=== PATIENT | male | born 2000 | race Caucasian/White ===

== ENCOUNTER 2025-01-25 08:42 | Emergency (ER) | payer BC, MEDICAID ==
[2025-01-25] MEDS: Take Home: Amoxicillin 875 MG Tab, 2 Tab Pack PO ONE (09:31)
== END 2025-01-25 09:37 | disposition home or self-care (01) ==
LOC: VM.ED 08:42
DX: K13.0 Diseases of lips (principal); K11.8 Other diseases of salivary glands; Z88.8 Allergy status to other drugs, medicaments and biological substances; Z79.899 Other long term (current) drug therapy
CPT/HCPCS: 99283; 99284; A9270